=== PATIENT | male | born 1995 | race Two or more races ===

== ENCOUNTER 2024-12-13 21:22 | Emergency (ER) | payer MEDICAID, OTHER ==
[~2024-12-13] VITALS: Ht 170.2 cm; Wt 63.6 kg
[2024-12-13] MEDS ORDERED: IBUP-1456 PO (22:34)
[2024-12-13] MEDS ORDERED: AUG875T PO (22:34)
--- NOTE | 2024-12-13 22:34 | ED.PDOC ---
HPI Comments PATIENT COMES WITH C/C OF RIGHT ARM PAIN WITH OPEN WOUND. PT REPORTS SOCKING HIS GLASS LAMP. WOUND IS WELL APPROXIMATED, BLEEDING HAS SUBSIDED. NO OBVIOUS FOREIGN BODY. STRENGTH SENSORY MOTION INTACT. DENIES NUMBNESS OR WEAKNESS. PATIENT ABLE TO GRASP AND FIST AND EXTEND ALL FINGERS AND HAND Chief Complaint: Wound Check Time Seen by MD: 21:24 Reviewed Notes: Nurses Notes, Medications, Allergies Allergies: Coded Allergies: NO KNOWN ALLERGIES (Unverified , 12/13/24) Information Source: Patient Mode of Arrival: Ambulatory All Other Systems: Reviewed and Negative (SEE HPI) Physical Exam General Appearance: No Apparent Distress, Normal HEENT: Normal ENT Inspection, Pharynx Normal, TMs Normal Neck: Full Range of Motion, Non-Tender, Normal, Normal Inspection Respiratory: Chest Non-Tender, Lungs Clear, No Accessory Muscle Use, No Respi ratory Distress, Normal Breath Sounds Cardiovascular: No Edema, No JVD, No Murmur, No Gallop, Normal Peripheral Pulses, Regular Rate/Rhythm Breast Exam: Deferred Gastrointestinal: No Organomegaly, Non Tender, No Pulsatile Mass, Normal Bowel Sounds, Soft Genitalia: Deferred Pelvic: Deferred Rectal: Deferred Extremities: No calf tenderness, Normal capillary refill, Normal inspection, Normal range of motion, Non-tender, No pedal edema Musculoskeletal : Apperance: Normal Neurologic: Alert, insulation nozzleman II-XII nml as Tested, No Motor Deficits, Normal Affect, Normal Mood, No Sensory Deficits Cerebellar Function: Normal Reflexes: Normal Skin: Dry, Normal Color, Warm Lymphatic: No Adenopathy Was a procedure done? Was a procedure done?: Yes Sedation Sedation?: No Informed consent obtained: Yes Laceration Repair : Location RIGHT DISTAL FOREARM Length 2 INCHES Anesthetic: Lidocaine, Without epi Laceration Repair Prep: Saline, by Irrigation Laceration Repair Wound Comple: epidermis/dermis repair Laceration Repair: Number of sutures (14), Simple, Non-adherent gauze, Gauze (PATIENT TOLERATED WELL WITH MINIMAL BLOOD LOSS) Informed consent obtained: Yes Risks, benefits, and alternati: Yes X-Ray, Labs, Meds, VS Vital Signs Date Time Temp Pulse Resp B/P (MAP) Pulse Ox O2 Delivery O2 Flow Rate FiO2 12/13/24 21:24 98.3 75 20 100/68 99 98.3 Time of 1ST Reevaluation: 21:45 Reevaluation 1ST: Unchanged Time of 2ND Reevaluation: 22:31 Reevaluation 2ND: Improved Patient Education/Counseling: Diagnosis, Treatment, Need For Follow Up Family Education/Counseling: Diagnosis, Treatment, Need For Follow Up Departure 1 Departure Time of Disposition: :31 Impression: Primary Impression: Laceration of right forearm without foreign body Qualified Codes: S51.811A - Laceration without foreign body of right forear m, initial encounter Disposition: HOME / SELF CARE / HOMELESS Condition: Stable e-Prescriptions Ibuprofen (Ibuprofen) 800 Mg Tab 800 MG PO Q8HP PRN for 5 Days, #15 TAB Prov: CINDI NAYAK 12/13/24 Amoxicillin & Pot Clavulanate (AUGMENTIN TABLET) 875 Mg Tb 875 MG PO BID for 7 Days, #14 TAB Prov: CINDI NAYAK 12/13/24 Discharged With: Relative (Mother) Critical Care Note Critical Care Time?: No Stability Stability form required: No CINDI NAYAK Dec 13, 2024 22:34
[2024-12-13 22:43] VITALS: BP 108/72; PULSE 75; RESP 20; TEMP 98; O2SAT 99
== END 2024-12-13 22:44 | disposition home or self-care (01) ==
LOC: ER 21:22
DX: S51.811A Laceration without foreign body of right forearm, initial encounter (principal); X58.XXXA Exposure to other specified factors, initial encounter; Y93.89 Activity, other specified; Y92.89 Other specified places as the place of occurrence of the external cause; Y99.8 Other external cause status
CPT/HCPCS: 12002

== ENCOUNTER 2024-12-24 16:53 | Emergency (ER) | payer MEDICAID ==
[~2024-12-24] VITALS: Ht 172.7 cm; Wt 66.5 kg
--- NOTE | 2024-12-24 17:48 | ED.PDOC ---
History of Present Illness(SKN HPI Comments 29-year-old male who presents to the ED for chief complaint of complication of wound recheck. Patient states he had sutures placed on the right wrist and states they are leaking blood. Patient in the ED states the skin around the suture area feels warm to the touch. Patient in the ED otherwise has stable vitals. The patient otherwise denies any other symptoms. Chief Complaint: Wound Check Time Seen by MD: 17:43 History of Present Illness: Medications, Allergies Allergies: Coded Allergies: NO KNOWN ALLERGIES (Unverified , 12/13/24) Home Meds Discontinued Scripts Amoxicillin & Pot Clavulanate (AUGMENTIN TABLET) 875 Mg Tb, 875 MG PO BID for 7 Days, #14 TAB Prov:CINDI NAYAK 12/13/24 Ibuprofen (Ibuprofen) 800 Mg Tab, 800 MG PO Q8HP PRN for 5 Days, #15 TAB Prov:CINDI NAYAK 12/13/24 Information Source: Patient, Relative (Mother) Mode of Arrival: Ambulatory Brought in by: Mother Past Medical History PAST MEDICAL HISTORY: Denies Surgical History: Denies all surgeries Family History Family History: Reviewed,noncontributory to illness Social History Smoker: Non-Smoker Alcohol: Denies ETOH Use Drugs: Denies Drug Use Lives In: Home Constitutional: denies: chills, diaphoresis, fatigue, fever, malaise, sweats, weakness, others EENTM: denies: blurred vision, double vision, ear bleeding, ear discharge, ear drainage, ear pain, ear ringing, eye pain, eye redness, hearing loss, mouth pain, mouth swelling, nasal discharge, nose bleeding, nose congestion, nose pain, photophobia, tearing, throat pain, throat swelling, voice changes, others Respiratory: denies: cough, hemoptysis, orthopnea, SOB at rest, shortness of breath, SOB with excertion, stridor, wheezing, others Cardiovascular: denies: chest pain, dizzy spells, diaphoresis, Dyspnea on exertion, edema, irregular heart beat, left arm pain, lightheadedness, palpitations, PND, syncope, others Gastrointestinal: denies: abdomen distended, abdominal pain, blood streaked bowels, constipated, diarrhea, dysphagia, difficulty swallowing, hematemesis, melena, nausea, poor appetite, poor fluid intake, rectal bleeding, rectal pain, vomiting, others Genitourinary: denies: burning, dysuria, flank pain, frequency, hematuria, incontinence, penile discharge, penile sore, pain, testicle pain, testicle swelling, urgency, others Neurological: denies: dizziness, fainting, headache, left sided numbness, left sided weakness, numbness, paresthesia, pre-existing deficit, right sided numbness, right sided weakness, seizure, speech problems, tingling, tremors, weakness, others Musculoskeletal: denies: back pain, gout, joint pain, joint swelling, muscle pain, muscle stiffness, neck pain, others Integumetry: reports: wounds (Volar aspect of right wrist); denies: bruises, change in color, change in hair/nails, dryness, laceration, lesions, lumps, rash, others Allergic/Immunocompromised: denies: Difficulty Healing, Frequent Infections, Hives, Itching, others Hematologic/Lymphatic: denies: anemia, blood clots, easy bleeding, easy bruising, swollen glands, others Endocrine: denies: excessive hunger, excessive sweating, excessive thirst, excessive urination, flushing, intolerance to cold, intolerance to heat, unexplained weight gain, unexplained weight loss, others Psychiatric: denies: anxiety, bipolar disorder, depression, hopeless, panic disorder, schizophrenia, sleepless, suicidal, others All Other Systems: Reviewed and Negative Physical Exam General Appearance: No Apparent Distress, Normal HEENT: Normal ENT Inspection, Pharynx Normal, TMs Normal Neck: Full Range of Motion, Non-Tender, Normal, Normal Inspection Respiratory: Chest Non-Tender, Lungs Clear, No Accessory Muscle Use, No Respiratory Distress, Normal Breath Sounds Cardiovascular: No Edema, No JVD, No Murmur, No Gallop, Normal Peripheral Pulses, Regular Rate/Rhythm Breast Exam: Deferred Gastrointestinal: No Organomegaly, Non Tender, No Pulsatile Mass, Normal Bowel Sounds, Soft Genitalia: Deferred Pelvic: Deferred Rectal: Deferred Extremities: No calf tenderness, Normal capillary refill, Normal inspection, Normal range of motion, Non-tender, No pedal edema Musculoskeletal : Apperance: Normal Neurologic: Alert, combat engineer II-XII nml as Tested, No Motor Deficits, Normal Affect, Normal Mood, No Sensory Deficits Cerebellar Function: Normal Reflexes: Normal Skin: Wounds ( 8 cm laceration to the volar aspect of the wrist stitches are intact no signs of infection mild bleeding noted) Lymphatic: No Adenopathy Was a procedure done? Was a procedure done?: No Differential Diagnosis (INTG) Differential Diagnosis: Cellulitis, Puncture Wound Abscess: Abscess, Bacteremia, Cellulitis, Other (Encounter for wound recheck) X-Ray, Labs, Meds, VS Vital Signs Date Time Temp Pulse Resp B/P (MAP) Pulse Ox O2 Delivery O2 Flow Rate FiO2 12/24/24 17:04 98.5 60 16 108/71 97 98.5 X-Ray, Labs, Meds, VS Comment Patient arrives alert and oriented, ABC's intact, afebrile, vital signs stable, saturating well in room air Diagnostic imaging ordered by me and results interpreted by radiology : Labs in the ED showed (pertinent+ and then pertinent-) Patient was given:_. Tolerated medications with no adverse reaction. Additional MDM Review of External, Non-ED records: External records reviewed. Discussion with independent historian (EMS, family) history obtained from the patient/parents (if applicable) at bedside Chronic conditions affecting care: None Social determinants of health affecting care: None Consideration of admission (observation or admission): I considered escalation of care to admission for this patient, however given the reassuring workup, the patient is safe for outpatient management. Discussion with the Radiology: No Tests considered but not performed: Prescription medication considered but not given: 12 lead EKG interpretation: Patient to follow up in 48-72 hours for wound recheck Dressing covered with a Surgacel taking to obtain homeostasis Time of 1ST Reevaluation: 18:15 Reevaluation 1ST: Unchanged Patient Education/Counseling: Diagnosis, Treatment Family Education/Counseling: No Family Present SEPSIS Sepsis Screen Date sepsis recognized/suspect: Dec 24, 2024 Time Sepsis recognized/suspect: 1705 Recent Procedure: No On Antibiotic Therapy: No Respiratory Rate >20: No Heart Rate >90: No Temp<36 C (96.8 F) or >38.3 C: No SBP <90 or MAP <65 mmHG: No New Acute Mental Status Change: No Is the patient on CPAP, BIPAP,: No Vital Signs Date Time Temp Pulse Resp B/P (MAP) Pulse Ox O2 Delivery O2 Flow Rate FiO2 12/24/24 17:04 98.5 60 16 108/71 97 98.5 Departure 1 Departure Time of Disposition: 17:46 Impression: Primary Impression: Encounter for wound re-check Disposition: 01 HOME / SELF CARE / HOMELESS Condition: Stable Discharged With: Self Critical Care Note Critical Care Time?: No Stability Stability form required: No Heart Score Heart Score: Heart Score Response (Comments) Value History N/A 0 EKG N/A 0 Age N/A 0 Risk Factors N/A 0 Troponin N/A 0 Total 0 I personally scribed for MIGUEL ANGEL SONG NP ([email or web address]) on 12/24/24 at 17:48. Electronically submitted by Richard Rebolledo ([email or web address]). MIGUEL ANGEL SONG NP Dec 24, 2024 17:48
[2024-12-24 17:52] VITALS: BP 122/87; PULSE 78; RESP 16; TEMP 98.4; O2SAT 97
== END 2024-12-24 17:54 | disposition home or self-care (01) ==
LOC: ER 16:53
DX: S61.511D Laceration without foreign body of right wrist, subsequent encounter (principal); Z48.00 Encounter for change or removal of nonsurgical wound dressing; X58.XXXD Exposure to other specified factors, subsequent encounter

== ENCOUNTER 2024-12-26 14:04 | Emergency (ER) | payer MEDICAID ==
[~2024-12-26] VITALS: Ht 172.7 cm; Wt 67.0 kg
--- NOTE | 2024-12-26 17:20 | ED.PDOC ---
History of Present Illness(SKN HPI Comments HPI: This is a 29 year old male accompanied by mother presenting to the ED with chief complaint of wound check. Patient reports that on 12/13, he had a large laceration occur to his right wrist after punching a lamp at the time. Patient relays that he had sutures placed in [facility] at the time. Patient states he went to on Monday and had 3 sutures removed, then coming to [facility] on Monday and having 3 removed. Patient notes he was unable to have any further sutures removed due to his anxiety and not allowing them to remove more. Patient reports he went to today and had one removed, however, he was advised to come to the ED due to the laceration not being completely healed and an opening in the sutures is now noted that needs to be re-closed. Patient reports that since having his first set of sutures removed, he has had bleeding from the wound site and associated hand pain. Patient relays that taking Ibuprofen relieves his pain. Patient denies any numbness, weakness, discharge, or redness to wound site. Past Medical history: Anxiety, Bipolar Disorder Past Surgical history: Denies Medications: Reviewed Social History: Denies smoking, ETOH, and drug use. Allergies: NKDA HPI: Poor Historian. REVIEW OF SYSTEMS: CONSTITUTIONAL: Denies acute: fever, diaphoresis, chills, generalized weakness. HEAD: Denies acute: headache, photophobia Eyes: Denies acute: Double vision, vision loss, eye pain, eye discharge. EARS: Denies acute: tinnitus, hearing loss, ear discharge, ear pain, THROAT: Denies acute: sore throat, swelling, difficulty swallowing , pain with swallowing, change in voice. NECK: Denies acute: neck pain, neck swelling, stiff neck. HEART: Denies acute : chest pain, palpitations, LUNGS: Denies acute: SOB, wheezing, cough, hemoptysis ABDOMEN: Denies acute: abdominal pain, Nausea, Vomiting, diarrhea, melena , hematemesis, hematochezia SKIN: Denies acute: rash, redness, lesions, itchiness. EXTREMITIES: Denies acute: calf pain, numbness, tingling, weakness, Denies acute: Low back pain. Neuro: Denies acute: focal neurological deficit, motor or sensory focal neurological deficit, tremors, seizure like activity, confusion, dizziness, change in mental status, loss of bowel or bladder function, cauda equina like symptoms. : Denies acute: dysuria, hematuria, flank pain, increase in urinary frequency. PSYCH: Denies acute: hallucination, suicidal ideation, homicidal ideation. PHYSICAL EXAM: General: ----no----acute distress, awake and alert. Head: normocephalic, atraumatic. No raccoon's eyes, no green sign. Throat: Normal phonation. Eyes:, no erythema, no purulent discharge, no proptosis, no icterus. Lungs: no apparent respiratory distress, Able to speak in full sentences. Neuro: Awake, Alert, oriented to name, self, situation, follows commands GCS=15. Speech is normal. Skin: no petechia, no purpura, no cyanosis, non-pale, not jaundice. Makes eye contact. moves all four extremities. Face: no apparent facial droop. Evaluation of the area of Complaint: right wrist laceration. Sutures are in place. The sutures that were removed earlier the skin edges have not fused. A gap of approximately 1.5 cm was caused by removal of sutures from earlier at urgent care. Patient was sent here for re-closure of the apart. Dermabond was applied and Steri-Strips. No evidence to suggest infection erythema or swelling of the laceration site. Radial pulses palpable. Patient is neurovascularly intact in the affected extremity. Patient has already completed two courses of antibiotics. Wound Dressing was applied. Ambulating in the ED independently. ED COURSE: DISCLAIMER: This medical document was created using an electronic medical record system with voice recognition software and computerized dictation system. Although this document has been carefully reviewed, there might still be some phonetic and typographical errors. Occasional wrong-word or "sound-alike" substitutions may have occurred due to the inherent limitations of voice recognition software. These areas are purely typographical due to imperfections of the software programs and do not reflect any compromise in the patient's medical care. Please read the chart carefully and recognize, using context, where these substitutions have occurred. Chief Complaint: Wound Check Time Seen by MD: 17:16 History of Present Illness: Medications, Allergies Allergies: Coded Allergies: NO KNOWN ALLERGIES (Unverified , 10/31/25) Home Meds Discontinued Scripts Amoxicillin & Pot Clavulanate (AUGMENTIN TABLET) 875 Mg Tb, 875 MG PO BID for 7 Days, #14 TAB Prov:CINDI NAYAKP 12/13/24 Ibuprofen (Ibuprofen) 800 Mg Tab, 800 MG PO Q8HP PRN for 5 Days, #15 TAB Prov:CINDI NAYAK BOOK JACKET COVER MACHINE OPERATOR 12/13/24 Information Source: Patient, Relative (Mother) Mode of Arrival: Ambulatory Was a procedure done? Was a procedure done?: Yes Laceration Repair : Location right wrist, 1.5cm Dermabond and [id number] applied Anesthetic: Nothing Laceration Repair Prep: Saline Laceration Repair Wound Comple: epidermis/dermis repair Laceration Repair: Size (1.5cm), Dermabond Informed consent obtained: Yes Risks, benefits, and alternati: Yes X-Ray, Labs, Meds, VS Vital Signs Date Time Temp Pulse Resp B/P (MAP) Pulse Ox O2 Delivery O2 Flow Rate FiO2 12/26/24 16:46 98.8 53 12 109/55 (73) 98 98.8 12/26/24 14:11 97.8 83 18 111/56 96 97.8 Time of 1ST Reevaluation: 18:15 Reevaluation 1ST: Improved Patient Education/Counseling: Diagnosis, Treatment Family Education/Counseling: Diagnosis, Treatment Departure 1 Departure Time of Disposition: 18:47 Impression: Primary Impression: Encounter for wound re-check Additional Impression: Wound dehiscence Disposition: 01 HOME / SELF CARE / HOMELESS Condition: Stable Additional Instructions: Additional instructions: Please read all instructions provided in this packet carefully. You MUST follow-up with your primary care/family doctor in 1 to 2 days. If you are unable to see your primary care/family doctor, please return to our emergency room for re-assessment and re-evaluation in 1 to 2 days. Return to the emergency room here in our facility or to the nearest ER [facility] if your symptoms change or worsen. CONSULTATIONS: you MUST Follow-up for consultation as soon as possible with: ---- You MUST call the consultants office yourself to make an appointment. You may need to arrange that through your insurance and/or your primary/family doctor. If you are unable to see the operational risk consultant in 1 to 2 days, you must return to our emergency room (or any other ER of your choice) for re-assessment and re- evaluation. Adequate fluid hydration. Although you have been discharged from the Emergency Department, this does not mean that you have a "clean bill of health". No definitive diagnosis for your symptoms has been made today. It is possible that you are in the process of developing a serious illness. This is why you must return to the ED without fail if any new or worsening symptoms develop. Keep the wound clean dry and covered. Do not submerge in water. Return for a suture removal in 4-5 days. Leave the Dermabond site and Steri-Strips as advised Discharged With: Self, Relative (Mother) Critical Care Note Critical Care Time?: No I personally scribed for LINDA GARCÍA DO ([email or web address]) on 12/26/24 at 17:19. Electronically submitted by He Grider ([email or web address]). I personally scribed for LINDA GARCÍA DO ([email or web address]) on 12/26/24 at 18:45. Electronically submitted by Liz Fischer ([email or web address]). LINDA GARCÍA DO Dec 26, 2024 17:19
--- NOTE | 2024-12-26 17:52 | DVH ---
Indication: s/p lac repair Technique: XY R WRIST 2 VIEW XRAYXY Comparison: None FINDINGS/IMPRESSION: No radiographic evidence for acute fracture or dislocation. Soft tissue laceration along the volar aspect of the distal right forearm. No radiopaque foreign body.
[2024-12-26 18:56] VITALS: BP 125/86; PULSE 70; RESP 16; TEMP 98.8; O2SAT 98
== END 2024-12-26 18:55 | disposition home or self-care (01) ==
LOC: ER 14:04
DX: T81.30XA Disruption of wound, unspecified, initial encounter (principal); F41.9 Anxiety disorder, unspecified; F31.9 Bipolar disorder, unspecified; Z79.899 Other long term (current) drug therapy; Z48.02 Encounter for removal of sutures; Y83.8 Other surgical procedures as the cause of abnormal reaction of the patient, or of later complication, without mention of misadventure at the time of the procedure; Y92.89 Other specified places as the place of occurrence of the external cause
CPT/HCPCS: 12001; 73100; 99283; A4649